=== PATIENT | female | born 1955 | race Caucasian/White ===

== ENCOUNTER 2016-12-01 10:25 | Emergency (ER) | payer OTHER ==
[~2016-12-01] VITALS: Ht 149.9 cm; Wt 74.5 kg
[~2016-12-01 10:25] MED LIST: APAP/HYDROCODON1 T13 PO; CARAFATE1 GM PO; COL100 PO; DULCOLAX10 MG RC; METP PO; PRI20 PO; ZOC20 PO
[2016-12-01 13:17] VITALS: BP 141/90
== END 2016-12-01 13:15 | disposition home or self-care (01) ==
LOC: ED 10:25
DX: M54.5 Low back pain (principal)
CPT/HCPCS: J1885

== ENCOUNTER 2018-11-20 13:01 | Emergency (ER) | payer OTHER ==
[~2018-11-20] VITALS: Ht 149.9 cm; Wt 73.5 kg
[2018-11-20 13:21] VITALS: Ht 149.9 cm; Wt 73.5 kg
[2018-11-20 13:59] LABS: BASOPHIL % 0.1 % (0-2)
[2018-11-20 14:03] LABS: RED CELL DISTRIBUTION WIDTH 17.9 % (11.5-14.5)
[2018-11-20 14:07] LABS: PLATELET COUNT 797 x10^3mcL (130-400)
[2018-11-20 14:10] LABS: CALCIUM 9.9 mg/dL (8.5-10.1); CARBON DIOXIDE 27.7 mmol/L (21-32); CHLORIDE SERUM 109 mmol/L (98-107); CREATININE SERUM 0.8 mg/dL (0.6-1.0); GFR1 > 60 mL/min; GLUCOSE SERUM 111 mg/dL (74-106); POTASSIUM SERUM 4.3 mmol/L (3.5-5.1); SODIUM SERUM 146 mmol/L (136-145)
[2018-11-20 14:14] LABS: ALBUMIN 3.4 g/dL (3.4-5.0); ALKALINE PHOSPHATASE 134 U/L (46-116); ALT/SGPT 19 U/L (14-59); AMYLASE 55 U/L (25-115); AST/SGOT 8 U/L (15-37); BILIRUBIN TOTAL 0.26 mg/dL (0.20-1.00); LIPASE 207 IU/L (73-393); TOTAL PROTEIN, SERUM 7.7 g/dL (6.4-8.2)
[2018-11-20 15:22] VITALS: BP 138/78
== END 2018-11-20 15:22 | disposition home or self-care (01) ==
LOC: ED 13:01
PROVIDERS: Emergency Medicine
DX: K62.5 Hemorrhage of anus and rectum (principal); F32.9 Major depressive disorder, single episode, unspecified; M19.90 Unspecified osteoarthritis, unspecified site; Z98.890 Other specified postprocedural states; Z90.710 Acquired absence of both cervix and uterus
CPT/HCPCS: 36415; J3010; Q0162

== ENCOUNTER 2019-01-19 10:07 | Emergency (ER) | payer OTHER, MEDICAID ==
[~2019-01-19] VITALS: Ht 149.9 cm; Wt 75.7 kg
[2019-01-19 10:14] VITALS: Ht 149.9 cm; Wt 75.7 kg
[2019-01-19 13:46] VITALS: BP 158/70
== END 2019-01-19 13:57 | disposition home or self-care (01) ==
LOC: ED 10:07
DX: S39.012A Strain of muscle, fascia and tendon of lower back, initial encounter (principal); F32.9 Major depressive disorder, single episode, unspecified; M19.90 Unspecified osteoarthritis, unspecified site; Z98.890 Other specified postprocedural states; X58.XXXA Exposure to other specified factors, initial encounter; Y93.89 Activity, other specified; Y92.89 Other specified places as the place of occurrence of the external cause; Y99.8 Other external cause status
CPT/HCPCS: J1885

== ENCOUNTER 2019-11-10 17:19 | Emergency (ER) | payer OTHER, MEDICAID ==
[~2019-11-10] VITALS: Ht 147.3 cm; Wt 78.5 kg
[2019-11-10 17:28] VITALS: BP 155/73; Ht 147.3 cm; Wt 78.5 kg
== END 2019-11-10 18:18 | disposition home or self-care (01) ==
LOC: ED 17:19
DX: M75.102 Unspecified rotator cuff tear or rupture of left shoulder, not specified as traumatic (principal); M19.90 Unspecified osteoarthritis, unspecified site; Z98.890 Other specified postprocedural states; Z90.710 Acquired absence of both cervix and uterus; Z86.2 Personal history of diseases of the blood and blood-forming organs and certain disorders involving the immune mechanism; Z85.42 Personal history of malignant neoplasm of other parts of uterus
CPT/HCPCS: J1885; Q0092

== ENCOUNTER 2020-06-24 15:49 | Emergency (ER) | payer OTHER, MEDICAID ==
[~2020-06-24] VITALS: Ht 149.9 cm; Wt 79.4 kg
[2020-06-24 16:15] VITALS: Ht 149.9 cm; Wt 79.4 kg
[2020-06-24 18:04] VITALS: BP 144/71
== END 2020-06-24 18:04 | disposition home or self-care (01) ==
LOC: ED 15:49
DX: S92.351A Displaced fracture of fifth metatarsal bone, right foot, initial encounter for closed fracture (principal); Z90.710 Acquired absence of both cervix and uterus; Z98.890 Other specified postprocedural states; Z85.42 Personal history of malignant neoplasm of other parts of uterus; X58.XXXA Exposure to other specified factors, initial encounter; Y93.89 Activity, other specified; Y92.89 Other specified places as the place of occurrence of the external cause; Y99.8 Other external cause status